=== PATIENT | male | born 1980 | race Caucasian/White ===

== ENCOUNTER 2022-04-14 07:50 | Emergency (ER) | payer OTHER ==
[~2022-04-14] VITALS: Ht 188 cm; Wt 154.0 kg
[2022-04-14 07:53] VITALS: BP 189/96
[2022-04-14] MEDS ORDERED: IBUPROFEN 600MG TABLET PO ONE (10:00)
[2022-04-14 11:58] LABS: BASOPHILS % 0.8 % (0.0-2.0); HEMATOCRIT. 38.4 % (42.0-52.0); HEMOGLOBIN. 12.8 g/dL (14.0-18.0); LYMPHOCYTES % 35.9 % (20.0-50.0); MEAN CORPUSCULAR HEMOGLOBIN 29.4 pg (28.0-32.0); MEAN CORPUSCULAR VOLUME 88.4 fL (80.0-94.0); MEAN PLATELET VOLUME 8.7 fl (7.4-10.4); MONOCYTES % 6.6 % (2.0-8.0); NEUTROPHILS % 53.7 % (40.0-76.0); PLATELET 167 x1000/uL (130-400); RED BLOOD CELL COUNT 4.34 mill/uL (4.7-6.1); RED CELL DISTRIBUTION WIDTH 15.2 % (11.6-14.6)
[2022-04-14 12:07] LABS: CHLORIDE 108 mEq/L (98-107)
== END 2022-04-14 13:00 | disposition left against medical advice (07) ==
LOC: EDBD 07:50 → ER 08:16
DX: R60.0 Localized edema (principal); I87.8 Other specified disorders of veins; M79.18 Myalgia, other site; I10 Essential (primary) hypertension
CPT/HCPCS: 36415; 80053; 85025; 99283